=== PATIENT | male | born 1960 | race Caucasian/White ===

== ENCOUNTER 2016-09-28 22:35 | Emergency (ER) | payer SELFPAY ==
[~2016-09-28] VITALS: Ht 160 cm; Wt 82.2 kg
--- OUTSIDE RECORDS SUMMARY | 2016-09-28 22:38 | XMS REPORT | Continuity of Care Document ---
Author Author Darnell QUACH, Lior [facility] Address [address] [place] [address] Phone Care Team Providers Care Cnc Lathe Machine Operator Name Role Phone Brian Woodward PP Unavailable Payers Payer name Insurance type Covered constitution party ID Authorization(s) Unknown Problems Condition Effective Dates (start - stop) Clinical Status Diverticulitis of colon (without mention of hemorrhage) - Recurrent Back pain - *Chronic Glycosuria - *Chronic Hypertension, Benign - *Chronic Bronchitis, acute - *Acute Hypertension, benign - *Chronic Osteoarthritis of both hips - *Chronic Hypertension, Benign - *Chronic 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 Diverticulitis of colon (without mention of hemorrhage) - * Chronic Hypertension, Benign - Acute Exacerbation Other acute pain - *Acute Abdominal pain, acute, left lower quadrant - *Acute Diverticulitis - Acute Exacerbation Diverticulitis - Acute Exacerbation BENIGN HYPERTENSION - Family History Family Member Diagnosis Age At Onset Status Brother (Unknown) Diabetes Yes Brother (Unknown) CAD Yes Mother (Unknown) Alzheimer's Disease Yes Father (Unknown) CAD Yes Brother (Unknown) Hypertension Yes Social History Social History Element Description Quantity Unknown Allergies, Adverse Reactions, Alerts Substance Reaction Severity Status Unknown Medications Medication Instructions Dosage Effective Dates (start - stop) Status lisinopril 5 mg tablet Take 1 tablet by mouth every day. - Active albuterol sulfate HFA 90 mcg/actuation aerosol inhaler inhale 1-2 puff by inhalation route every 4 - 6 hours as needed - Active [place] 5 mg-325 mg tablet take 1 tablet by oral route every 6 hours PRN 0 - Active Immunizations Vaccine Date Status Comments Unknown Results Test Name Date and Time Measure Units Reference Range Abnormal Flag Comments Unknown Vital Signs Date / Time: Height Weight Pulse Rate Blood Pressure Temperature /15:33:00 63.00 in 198.00 lbs 140/72 mm[Hg] 97.9 F Procedures Procedure Date Unknown Encounters Encounter Location Date Patient Visit [facility] Surg Patient Visit [facility] Patient Visit [facility] [place] Patient Visit [facility] Patient Visit [facility] Patient Visit [facility] Patient Visit [facility] Patient Visit [facility] Advance Directives Directive Effective Date Unknown
--- OUTSIDE RECORDS SUMMARY | 2016-09-28 22:38 | XMS REPORT | Continuity of Care Document ---
Author Author Brian Woodward MD [facility] Address [address] [place] [address] [place] [address] Phone Care Team Providers Care Publications Editor Name Role Phone Brian Woodward PP Unavailable Payers Payer name Insurance type Covered constitution party ID Authorization(s) Unknown Problems Condition Effective Dates (start - stop) Clinical Status Diverticulitis - Acute Exacerbation Abdominal pain, acute, left lower quadrant - *Acute Other acute pain - *Acute Hypertension, Benign - Acute Exacerbation Hypertension, Benign - *Chronic Glycosuria - *Chronic Back pain - *Chronic Bronchitis, acute - *Acute Hypertension, benign - *Chronic Osteoarthritis of both hips - *Chronic Hypertension, Benign - *Chronic BENIGN HYPERTENSION - Diverticulitis - Acute Exacerbation Diverticulitis of colon (without mention of hemorrhage) - Recurrent Family History Family Member Diagnosis Age At Onset Status Brother (Unknown) Diabetes Yes Brother (Unknown) CAD Yes Mother (Unknown) Alzheimer's Disease Yes Father (Unknown) CAD Yes Brother (Unknown) Hypertension Yes Social History Social History Element Description Quantity Unknown Allergies, Adverse Reactions, Alerts Substance Reaction Severity Status Unknown Medications Medication Instructions Dosage Effective Dates (start - stop) Status Flagyl 500 mg tablet take 1 tablet (500MG) by oral route every 8 hours 500 MG - No Longer Active Cipro 500 mg tablet take 1 tablet (500MG) by oral route 2 times every day 500 MG - No Longer Active lisinopril 5 mg tablet Take 1 tablet by mouth every day. - Active albuterol sulfate HFA 90 mcg/actuation aerosol inhaler inhale 1-2 puff by inhalation route every 4 - 6 hours as needed - Active [place] 5 mg-325 mg tablet take 1 tablet by oral route every 6 hours PRN 0 - Active Immunizations Vaccine Date Status Comments Unknown Results Test Name Date and Time Measure Units Reference Range Abnormal Flag Comments Panel Description: CBC WBC 10:47:00 4.9 K/uL 4.8-10.8 RBC 10:47:00 5.30 M/uL 4.60-6.20 HGB 10:47:00 15.5 g/dl 14.0-18.0 HCT 10:47:00 46.2 % 42.0-52.0 MCV 10:47:00 87.2 fL 82.0-99.0 MCH 10:47:00 29.2 pg 27.0-32.0 MCHC 10:47:00 33.5 g/dL 32.0-36.0 RDW 10:47:00 14.0 % 11.5-14.5 MPV 10:47:00 11.7 fL 8.8-14.8 Platelet Count 10:47:00 199 K/uL 150-400 Immature Granulocytes 10:47:00 0.2 % 0.0-1.0 Absolute Neutrophils 10:47:00 2.77 THOUS 1.90-7.00 Absolute Lymphocytes 10:47:00 1.26 THOUS 0.80-3.30 Absolute Monocytes 10:47:00 0.64 THOUS 0.30-1.00 Absolute Eosinophils 10:47:00 0.13 THOUS 0.00-0.50 Absolute Basophils 10:47:00 0.06 THOUS 0.00-0.20 Neutrophils 10:47:00 57 % 51-75 Lymphocytes 10:47:00 26 % 20-46 Monocytes 10:47:00 13 % 4-11 H Eosinophils 10:47:00 3 % 0-4 Basophils 10:47:00 1 % 0-2 Testing performed at [facility] Reference Lab [address] [place], [place] [address] Software Developer Consultant Mario Valdez MD Panel Description: Metabolic Profile Glucose 10:47:00 100 mg/dL 70-99 H BUN 10:47:00 10 mg/dL 8-26 Creatinine 10:47:00 0.96 mg/dL 0.72-1.25 Calcium 10:47:00 9.5 mg/dL 8.9-10.5 Sodium 10:47:00 139 mEq/L 135-144 Potassium 10:47:00 4.1 mEq/L 3.5-5.2 Chloride 10:47:00 105 mEq/L 99-111 CO2 10:47:00 29 mEq/L 23-31 Anion Gap 10:47:00 5 3-20 Testing performed at [facility] Reference Lab [address] [place] [address] Software Developer Consultant Mario Valdez MD Panel Description: EGFR-[facility] eGFR 10:47:00 >60 mL/min >60 Multiply eGFR results by 1.21 for race.Testing performed at [facility] Reference Lab [address] [place], [place] [address] Software Developer Consultant Mario Valdez MD Vital Signs Date / Time: Height Weight Pulse Rate Blood Pressure Temperature /09:33:00 63.00 in 203.00 lbs 71 /min 150/100 mm[Hg] 97.7 F Procedures Procedure Date Unknown Encounters Encounter Location Date Patient Visit [facility] New Patient Visit [facility] New Patient Visit [facility] Care Patient Visit [facility] Patient Visit [facility] Patient [facility] Patient Visit [facility] New Surg Advance Directives Directive Effective Date Unknown
--- OUTSIDE RECORDS SUMMARY | 2016-09-28 22:38 | XMS REPORT | Continuity of Care Document ---
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 Diverticulitis of colon (without mention of hemorrhage) - * Chronic Hypertension, Benign - *Chronic Glycosuria - *Chronic Back pain - *Chronic Bronchitis, acute - *Acute Hypertension, benign - *Chronic Osteoarthritis of both hips - *Chronic Hypertension, Benign - *Chronic BENIGN HYPERTENSION - Diverticulitis - Acute Exacerbation Diverticulitis of colon (without mention of hemorrhage) - Recurrent Diverticulitis - Acute Exacerbation Abdominal pain, acute, left lower quadrant - *Acute Other acute pain - *Acute Hypertension, Benign - Acute Exacerbation Follow-up examination, following other surgery - *Acute Family History Family Member Diagnosis Age At [...] - 6 hours as needed - Active [place] 5 mg-325 mg tablet take 1 tablet by oral route every 6 hours PRN 0 - Active Immunizations Vaccine Date Status Comments Unknown Results Test Name Date and Time Measure Units Reference Range Abnormal Flag Comments Unknown Vital Signs Date / Time: Height Weight Pulse Rate Blood Pressure Temperature /13:05:00 63.00 in 200.00 lbs 98.5 F Procedures Procedure Date Unknown Encounters Encounter Location Date Patient Visit [facility] Surg Patient Visit [facility] Patient Visit [facility] Patient Visit [facility] Patient Visit [facility] Patient Visit [facility] Patient Visit [facility] Surg Patient Visit [facility] Patient Visit [facility] Advance Directives Directive Effective Date Unknown
--- OUTSIDE RECORDS SUMMARY | 2016-09-28 22:38 | XMS REPORT | Continuity of Care Document ---
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 Diverticulitis of colon (without mention of hemorrhage) - * Chronic Family History Family Member Diagnosis Age At [...] - 6 hours as needed - Active [place] 5 mg-325 mg tablet take 1 tablet by oral route every 6 hours PRN 0 - Active Immunizations Vaccine Date Status Comments Unknown Results Test Name Date and Time Measure Units Reference Range Abnormal Flag Comments Unknown Vital Signs Date / Time: Height Weight Pulse Rate Blood Pressure Temperature /14:05:00 63.00 in 198.00 lbs 98.8 F Procedures Procedure Date Unknown Encounters Encounter Location Date Patient Visit [facility] Surg Patient Visit [facility] Patient Visit [facility] Patient Visit [facility] Patient Visit [facility] Patient Visit [facility] Patient Visit [facility] Surg Patient Visit [facility] Patient Visit [facility] Advance Directives Directive Effective Date Unknown
--- OUTSIDE RECORDS SUMMARY | 2016-09-28 22:38 | XMS REPORT | Continuity of Care Document ---
Author Author [facility] Organization [facility] Address Unknown Phone Unavailable Allergies Medications Problems Procedures Results Encounters ACCT No. Visit Date/Time Discharge Status Pt. Type Provider Facility Loc./Unit Complaint [id number] 09/24/2013 14:04:00 09/24/2013 23 :59:59 CLS Outpatient [id number] 09/16/2013 13:04:00 09/16/2013 23 :59:59 CLS Outpatient [id number] 08/12/2013 15:32:00 08/12/2013 23 :59:59 CLS Outpatient [id number] 07/22/2013 09:32:00 07/22/2013 23 :59:59 CLS Outpatient
--- OUTSIDE RECORDS SUMMARY | 2016-09-28 22:39 | XMS REPORT | Continuity of Care Document ---
Author Author [facility] Organization [facility] Address Unknown Phone Unavailable Care Team Providers Care Shellfish Manager Name Role Phone ADI ADAMS MD Primary Care Physician [phone] Insurance Providers Payer Name Policy Number Subscriber Name Relationship [facility] [id number] López Dinh 16 Self Problems Medical Problems Problem Onset Date Status Diverticulitis Unknown Active ACUTE SIGMOID DIVERTICULITIS Unknown Active intractable abdominal pain Unknown Active Sprain, hand Unknown Active Sprain of hand or finger, right Unknown Active Medications Medication Dose Route Sig Days/Qty Instructions Order Date Discontinued Date Status [None] 09/23/14 Active Social History Social History Problem Response Recorded Date/Time Chewing Tobacco Status No 09/17/2013 9:46am Hx Substance Use No 09/23/2014 5:01pm Hx Alcohol Use No 09/23/2014 5:01pm Has the pt used tobacco in the last 12 months No 09/17/2013 9:46am Query Response Start Date Stop Date Smoking Status Never smoker Hospital Discharge Instructions No hospital discharge instructions. Plan of Care No plan of care. Functional Status Query Response Date Recorded Physical Hygiene Self September 23, 2014 5:01pm Disabilities None September 23, 2014 5:01pm Devices Used None September 23, 2014 5:01pm Dressing Self September 23, 2014 5:01pm Ambulation Self September 23, 2014 5:01pm Diet Self September 23, 2014 5:01pm Mental Status Alert Oriented September 23, 2014 6:29pm Disabilities None September 23, 2014 5:01pm Devices Used None September 23, 2014 5:01pm Physical Hygiene Self September 23, 2014 5:01pm Dressing Self September 23, 2014 5:01pm Ambulation Self September 23, 2014 5:01pm Diet Self September 23, 2014 5:01pm Allergies, Adverse Reactions, Alerts Allergen Type Severity Reaction Status Last Updated Ciprofloxacin Adverse Reaction Unknown N/V - GI UPSET Active 09/09/13 Metronidazole Adverse Reaction Unknown N/V - GI UPSET Active 09/09/13 Immunizations Name Given Type Hx Influenza Vaccination No Historical Hx Pneumococcal Vaccination No Historical Hx Tetanus, Diptheria, Pertussis Y 2011 Historical Hx Influenza Vaccination No Historical Hx Tetanus, Diptheria, Pertussis Y 2011 Historical Vital Signs Acute Vital Signs Vital Response Date/Time Temperature (Fahrenheit) 98.5 deg F (96.8 - 99.1) Temperature (Calculated Celsius) 36.07634 degrees C (36.0 - 37.3) Pulse Rate (adult) 83 bpm (60 - 100) Respiratory Rate 16 breaths/min (10 - 20) O2 Sat by Pulse Oximetry 96 % (90 - 100) Blood Pressure 142/101 mm Hg Height 5 ft 3 in Weight 198 lb Body Mass Index 35.0 kg/m^2 Results Test Source Date Result Interp. Ref. Range Comments Alanine Aminotransferase (ALT/SGPT) June 29, 2013 5:35am 26 U/L N 21 -72 Albumin June 29, 2013 5:35am 3.6 G/DL N 3.5-5.0 Albumin/Globulin Ratio June 29, 2013 5:35am 1.0 RATIO L 1.1-2.2 Alkaline Phosphatase June 29, 2013 5:35am 66 U/L N 38-126 Amylase Level June 24, 2013 8:15pm 86 U/L N 30-110 Anion Gap September 18, 2013 12:10pm 10 MEQ/L N 5-15 COMMENT SCU WILL CALL Aspartate Amino Transf (AST/SGOT) June 29, 2013 5:35am 25 U/L N 17- 59 BUN/Creatinine Ratio September 18, 2013 12:10pm 14 RATIO N 6-26 COMMENT SCU WILL CALL Basophils # (Auto) June 29, 2013 5:35am 0.0 T/MM3 N 0-0.2 Basophils (%) (Auto) June 29, 2013 5:35am 0.3 % N 0-2 Blood Urea Nitrogen September 18, 2013 12:10pm 11.0 MG/DL N 9-20 COMMENT SCU WILL CALL Calcium Level September 18, 2013 12:10pm 9.2 MG/DL N 8.4-10.2 COMMENT SCU WILL CALL Calculated Osmolality September 18, 2013 12:10pm 274 MOSM/KG N 261-280 COMMENT SCU WILL CALL Carbon Dioxide Level September 18, 2013 12:10pm 27 MEQ/L N 22-30 COMMENT SCU WILL CALL Chloride Level September 18, 2013 12:10pm 106 MEQ/L N 98-107 COMMENT SCU WILL CALL Creatinine September 18, 2013 12:10pm 0.8 MG/DL N 0.8-1.5 COMMENT SCU WILL CALL Eosinophils # (Auto) June 29, 2013 5:35am 0.2 T/MM3 N 0-0.5 Eosinophils (%) (Auto) June 29, 2013 5:35am 2.7 % N 0-4 Globulin June 29, 2013 5:35am 3.5 G/DL N 2.4-3.6 Glucose Level September 18, 2013 12:10pm 90 MG/DL N 75-110 COMMENT SCU WILL CALL Hematocrit June 29, 2013 5:35am 41.1 % N 41-53 Hemoglobin June 29, 2013 5:35am 13.9 GM/DL N 13.5-17.5 Lipase June 24, 2013 8:15pm 101 U/L N 23-300 Lymphocytes # (Auto) June 29, 2013 5:35am 1.1 T/MM3 N 1-4.8 Lymphocytes # (Manual) June 24, 2013 8:15pm 0.4 T/MM3 L 1-4.8 Lymphocytes % (Manual) June 24, 2013 8:15pm 3.0 % L 23-45 Lymphocytes (%) (Auto) June 29, 2013 5:35am 15.8 % L 23-45 Mean Corpuscular Hemoglobin June 29, 2013 5:35am 30.2 UUG N 26-34 Mean Corpuscular Hemoglobin Concent June 29, 2013 5:35am 33.8 GM/DL N 31-37 Mean Corpuscular Volume June 29, 2013 5:35am 89.3 UM3 N 80-100 Mean Platelet Volume June 29, 2013 5:35am 10.5 UM3 N 9.4-12.4 Monocytes # (Auto) June 29, 2013 5:35am 0.7 T/MM3 N 0-0.8 Monocytes # (Manual) June 24, 2013 8:15pm 0.4 T/MM3 N 0-0.8 Monocytes % (Manual) June 24, 2013 8:15pm 3.0 % N 0-9.0 Monocytes (%) (Auto) June 29, 2013 5:35am 10.5 % H 0-9.0 Neutrophils # (Auto) June 29, 2013 5:35am 4.9 T/MM3 N 1.8-7.7 Neutrophils # (Manual) June 24, 2013 8:15pm 12.6 T/MM3 H 1.8-7.7 Neutrophils % (Manual) June 24, 2013 8:15pm 93.0 % H 33-66 Neutrophils (%) (Auto) June 29, 2013 5:35am 70.4 % H 33-66 Platelet Count June 29, 2013 5:35am 226 T/MM3 N 130-400 Potassium Level September 18, 2013 12:10pm 4.2 MEQ/L N 3.6-5 COMMENT SCU WILL CALL Prealbumin June 25, 2013 5:25am 21.3 MG/DL N 17.6-36.0 RDW Standard Deviation June 29, 2013 5:35am 43.0 FL N 36.9-50.2 Red Blood Count June 29, 2013 5:35am 4.60 M/MM3 N 4.50-5.90 Sodium Level September 18, 2013 12:10pm 143 MEQ/L N 134-144 COMMENT SCU WILL CALL Thyroid Stimulating Hormone (TSH) June 25, 2013 5:25am 0.84 MIU/L N 0.47-4.68 COMMENT blood in lab Total Bilirubin June 29, 2013 5:35am 0.70 MG/DL N 0.20-1.30 Total Protein June 29, 2013 5:35am 7.1 G/DL N 6.3-8.2 Urine Bilirubin June 24, 2013 9:30pm Negative - Has specimen been collected/obtained? Y Urine Blood June 24, 2013 9:30pm Negative - Has specimen been collected/obtained? Y Urine Collection Type June 24, 2013 9:30pm Cleancatch-midstream - Has specimen been collected/obtained? Y Urine Color June 24, 2013 9:30pm Yellow - Has specimen been collected/obtained? Y Urine Glucose (UA) June 24, 2013 9:30pm Negative - Has specimen been collected/obtained? Y Urine Ketones June 24, 2013 9:30pm Negative - Has specimen been collected/obtained? Y Urine Leukocyte Esterase June 24, 2013 9:30pm Negative - Has specimen been collected/obtained? Y Urine Nitrite June 24, 2013 9:30pm Negative - Has specimen been collected/obtained? Y Urine Protein June 24, 2013 9:30pm Negative - Has specimen been collected/obtained? Y Urine Specific [place] June 24, 2013 9:30pm 1.010 L - Has specimen been collected/obtained? Y Urine Turbidity June 24, 2013 9:30pm Clear - Has specimen been collected/obtained? Y Urine Urobilinogen June 24, 2013 9:30pm Normal EU/DL - Has specimen been collected/obtained? Y Urine pH June 24, 2013 9:30pm 8.0 - Has specimen been collected/ obtained? Y Vitamin B12 Level June 25, 2013 5:25am 488 PG/ML N 239-931 White Blood Count June 29, 2013 5:35am 7.0 T/MM3 N 4.5-11.0 Chemistry Specimen Hemolysis September 18, 2013 12:10pm < 15 0-25 0-25: No Hemolysis.26-70: Slight Hemolysis - can falsely elevate K and Urine Protein. 71-285: Moderate Hemolysis - can falsely elevate K, Troponin I, CA 19-9, PTH, CSF GLucose, and Urine Protein, and can falsely decrease Phenytoin. 286-999: Gross Hemolysis - can falsely elevate K, Troponin I, CA 19-9, PTH, CSF Glucose, and Urine Protine, and can falsely decrease Phenytoin. Recommend specimen recollection. Urinalysis Comment June 24, 2013 9:30pm Microscopic not ind. - Has specimen been collected/obtained? Y Glucometer September 18, 2013 8:16am 91 mg/dL N 75-110 Turbidity September 18, 2013 12:10pm < 20 0-20 COMMENT SCU WILL CALL Reactive Lymphocytes % June 24, 2013 8:15pm 1.0 % H 0-0 Glomerular Filtration Rate Calc September 18, 2013 12:10pm 101 - COMMENT SCU WILL CALL Reactive Lymphocytes # June 24, 2013 8:15pm 0.1 T/MM3 H 0-0 Immature Granulocyte # (Auto) June 29, 2013 5:35am 0.02 T/MM3 N 0.00 -0.03 Immature Granulocyte % (Auto) June 29, 2013 5:35am 0.3 % N 0.0-0.5 Icterus Index September 18, 2013 12:10pm < 2 0-7 COMMENT SCU WILL CALL Procedures No known history of procedures. Encounters Encounter Location Date/Time Departed Emergency Room [facility] 09/23/14 4:38pm Recent Diagnosis
[2016-09-28 23:15] VITALS: Ht 160 cm; Wt 82.2 kg
--- NOTE | 2016-09-28 23:25 | NUR ---
ROOM PT AMBULATORY TO ROOM 5 FROM TRIAGE PT RESTLESS AND PACING IN ROOM AT TIMES HE LAYS ACROSS THE CART WHICH HE SAYS IS THE MOST COMFORTABLE
[2016-09-28] MEDS ORDERED: LISI-625 PO (23:26)
--- NOTE | 2016-09-28 23:49 | NUR ---
IVL IVL STARTED IN THE RIGHT HAND WITH #20GA, FIRST ATTEMPT BLOOD OBTAINED FOR LAB PT KESHA WELL
[2016-09-28] MEDS ORDERED: NORMAL SALINE 1,000 ML IV ONE (23:57)
[2016-09-29] MEDS ORDERED: TAMSULOSIN 0.4 MG CAPSULE PO ONE
[2016-09-29] MEDS ORDERED: KETOROLAC 30mg/ml INJECTION IV ONE
[2016-09-29] MEDS ORDERED: ONDANSETRON 4mg/2ml INJECTION IV ONE
--- OUTSIDE RECORDS SUMMARY | 2016-09-29 00:05 | XMS REPORT | Continuity of Care Document ---
Author Author [facility] Organization [facility] Address Unknown Phone Unavailable Allergies Medications Problems Procedures Results Encounters ACCT No. Visit Date/Time Discharge Status Pt. Type Provider Facility Loc./Unit Complaint [id number] 09/24/2013 14:04:00 09/24/2013 23 :59:59 CLS Outpatient [id number] 09/16/2013 13:04:00 09/16/2013 23 :59:59 CLS Outpatient [id number] 08/12/2013 15:32:00 08/12/2013 23 :59:59 CLS Outpatient [id number] 07/22/2013 09:32:00 07/22/2013 23 :59:59 CLS Outpatient
--- OUTSIDE RECORDS SUMMARY | 2016-09-29 00:05 | XMS REPORT | Continuity of Care Document ---
Author Author [facility] Organization [facility] Address Unknown Phone Unavailable Care Team Providers Care Rejector Name Role Phone ADI ADAMS MD Primary Care Physician [phone] Insurance Providers Payer Name Policy Number Subscriber Name Relationship [facility] [id number] López Dinh 16 Self Problems Medical Problems [...] F (96.8 - 99.1) Temperature (Calculated Celsius) 36.20358 degrees C (36.0 - 37.3) Pulse Rate [...] Has specimen been collected/obtained? Y Urine Specific [place] June 24, 2013 9:30pm 1.010 L - [...] Encounters Encounter Location Date/Time Departed Emergency Room [facility] 09/23/14 4:38pm Recent Diagnosis
--- NOTE | 2016-09-29 00:18 | NUR ---
IV FLUID #1 IV 1000CC NS STARTED AT 999CC/HR IV SITE WITHOUT REDNESS OR SWELLING
--- NOTE | 2016-09-29 00:19 | NUR ---
ZOFRAN IV ZOFRAN GIVEN FOR NAUSEA
--- NOTE | 2016-09-29 00:22 | ERPDOC ---
Departure Disposition Decision Date: Sep 29, 2016 Disposition Decision Time: 00:20 Disposition: 01 DISCHARGED HOME, SELF-CARE Impression Impression Impression: Primary Impression: Constipation Constipation type: other constipation type Qualified Codes: K59.09 - Other constipation Severity: Severe Condition: Improved Seen By: Physician only Referrals: YOUR PHYSICIAN 3 Days Patient Instructions: Constipation (ED) Problems/Meds/Labs Reviewed?: Yes Medications reviewed and manag: Yes Additional Instructions: Discharge instructions given on printed form during system downtime. Follow up care ordered?: Yes Mental Status: Alert, Oriented HPI - Abdominal Pain General Chief Complaint: Flank Pain Stated Complaint: RIGHT SIDED PAIN Time Seen by Provider: 23:57 Source: patient History/Exam Limitations: no limitations HPI - Abdominal Pain Initial Comments 55yo man presents to the ER tonight for RUQ pain. Pain has been present since around 1600 today, shortly after he ate a [employer] day meal (corned beef, cabbage, and potatoes). Pt went for a bike ride following, but sx were worse. Pain has been sharp and achy, steady, and progressive since starting. Pt has never had sx like this before. Has not gotten any relief. Occurred At: home Onset: Gradual, Getting worse Duration: 6-12 hrs Pain Scale: Now & Worst: 6/10 Quality: aching, stabbing Location: RUQ Radiation: no radiation 1 - Pain Activities at Onset: during/after eating Modifying Factors: WORSE WITH: movement, palpation, walking Associated Symptoms: fever/chills, nausea/vomiting Hx of Similar Symptoms: No Allergies: Coded Allergies: ciprofloxacin (Verified Adverse Reaction, Unknown, N/V - GI UPSET, 09/28/16 ) pt states, "It was awful to take.", unknown if actually an allergy metronidazole (Verified Adverse Reaction, Unknown, N/V - GI UPSET, ) states, "It's awful." unsure if actually an allergy Past History Past Medical History Metabolic: hypertension GI: GERD Psychological: alcohol abuse Surgical History General: colonoscopy Family History Family PMH: FOUND: CAD, diabetes, other Vaccines Hx Influenza Vaccination: No Hx Pneumococcal Vaccination: No Hx Tetanus, Diptheria, Pertuss: Yes (2011) Review of Systems GI Upper Abdomen: nausea, pain Comments Bloating All other Systems All Other Systems: Reviewed and Negative Physical Exam General General Nourishment: well nourished, well developed, appears stated age, adult , obese, acute distress General Body Habitus: well groomed Vitals and Pain First Documented Vital Signs Date Time Temp Pulse Resp B/P Pulse Ox O2 Delivery O2 Flow Rate FiO2 09/28/16 23:15 98.5 74 18 126/88 96 Room Air Weight: Kilograms: 82.200 Height (feet): 5 Height (inches): 3.00 Triage Pain Scale: RN VS reviewed by Provider: Yes Normal Exams: Head: Normocephalic w/o trauma Eyes: Pupils are PERRLA w/ EOMI, No scleral icterus, irritation ENMT: No facial trauma, nasal exudates, pharyngeal erythema Neck: Full range of motion, without adenopathy, JVD Lymphatic: No lymphadenopathy Musculoskeletal: No tenderness, or deformity noted, good range of motion Integumentary: No rashes, hives, or bruising noted Neurologic: Patient is alert, and oriented Psychiatric: Patient exhibits, appropriate attention Respiratory (brief) Respiratory: FOUND: clear all sinha, equal bilaterally, symmetrical, NOT FOUND : rales, wheezes Cardiovascular (brief) Cardiac: FOUND: regular rate, regular rhythm, NOT FOUND: click, gallop, murmur , pedal edema, peripheral edema, rub Capillary Refill: <2 sec Pulses: all distal extremities, equal, strong Abdomen (brief) Abdominal Brief: FOUND: bowel normo active x4, distended, soft, tender (Point tenderness over RUQ. Positive Jara's sign.), NOT FOUND: hepatosplenomegaly, pulsatile mass Differential Diagnoses Considering: Appendicitis, Biliary Colic, Bowel Obstruction, Cholecystitis, Gastroenteritis, GERD, Hernia, IBS, Pancreatitis, Pneumonia, Pyelonephritis, Renal Colic, UTI, Volvulus Progress Results/Orders Orders Procedure Category Date Status Time Cbc W/Auto LAB 09/28/16 Complete Diff-Reflex Manual 23:57 Bmp - Basic Metabolic LAB 09/28/16 Complete Panel 23:57 Ua, Dip Wreflex LAB 09/28/16 Logged [employer]ator 23:57 Iv Lock (Ed Only) EDM 09/28/16 Transmitted 23:57 Normal Saline (Normal PHA 09/28/16 Complete Saline Iv) 23:57 Ondansetron Inj PHA 09/29/16 Complete (Zofran) 00:00 Ketorolac (Toradol) PHA 09/29/16 Complete 00:00 Ct Abd/Pelvis CT 09/29/16 Taken W/Contrast Only Lipase LAB 09/29/16 Complete Cmp - Comprehensive LAB 09/29/16 Complete Metabolic Piperacillin/Tazobactam PHA 09/29/16 Complete (Zosyn) 03:00 Morphine Sulfate PHA 09/29/16 Complete (Morphine) 01:00 Iohexol (Omnipaque) PHA 09/29/16 Complete 00:49 Normal Saline (Ns) PHA 09/29/16 Complete 00:50 Saline Flush (Iv PHA 09/29/16 Complete Flush) 00:50 Morphine Sulfate PHA 09/29/16 Complete (Morphine) 01:19 Lab Results Laboratory Tests Test 09/29/16 00:19 White Blood Count 7.9T/MM3 Red Blood Count 5.23M/MM3 Hemoglobin 15.9GM/DL Hematocrit 47.6% Mean Corpuscular Volume 91.0UM3 Mean Corpuscular Hemoglobin 30.4UUG Mean Corpuscular Hemoglobin Concent 33.4GM/DL RDW Standard Deviation 45.1FL Platelet Count 202T/MM3 Mean Platelet Volume 11.0UM3 Immature Granulocyte % (Auto) 0.1% Neutrophils (%) (Auto) 76.1% Lymphocytes (%) (Auto) 14.5% Monocytes (%) (Auto) 7.6% Eosinophils (%) (Auto) 1.3% Basophils (%) (Auto) 0.4% Absolute Immature Granulocyte (auto 0.01T/MM3 Absolute Neutrophils (auto) 6.0T/MM3 Absolute Lymphocytes (auto) 1.1T/MM3 Absolute Monocytes (auto) 0.6T/MM3 Absolute Eosinophils (auto) 0.1T/MM3 Absolute Basophils (auto) 0.0T/MM3 Turbidity < 20 Sodium Level 143MEQ/L Potassium Level 4.2MEQ/L Chloride Level 106MEQ/L Carbon Dioxide Level 24MEQ/L Anion Gap 13MEQ/L Blood Urea Nitrogen 11.0MG/DL Creatinine 0.9MG/DL Glomerular Filtration Rate Calc 87 BUN/Creatinine Ratio 12RATIO Glucose Level 104MG/DL Calculated Osmolality 274MOSM/KG Calcium Level 9.1MG/DL Total Bilirubin 1.10MG/DL Icterus Index < 2 Aspartate Amino Transf (AST/SGOT) 31U/L Alanine Aminotransferase (ALT/SGPT) 38U/L Alkaline Phosphatase 80U/L Total Protein 7.5G/DL Albumin 4.3G/DL Globulin 3.2G/DL Albumin/Globulin Ratio 1.3RATIO Lipase 149U/L Chemistry Specimen Hemolysis < 15 Medications Current ED Medications Sodium Chloride (Normal Saline IV) 1,000 ml @ 0 mls/hr Q0M ONCE IV Last administered on 09/29/16 00:18; Start 09/28/16 at 23:57; Stop 09/28/16 at 23:59 ; Status DC Ondansetron HCl (Zofran) 4 mg O ONCE IV Last administered on 09/29/16 00:19; Start 09/29/16 at 00:00; Stop 09/29/16 at 00:01; Status DC Tamsulosin HCl (FLOMAX 0.4 mg) 0.4 mg O ONCE PO ; Start 09/29/16 at 00:00; Stop 09/29/16 at 00:01; Status Cancel Ketorolac Tromethamine 30 mg 30 mg O ONCE IV Last administered on 09/29/16 00 :22; Start 09/29/16 at 00:00; Stop 09/29/16 at 00:01; Status DC Piperacillin Sod/ Tazobactam Sod/ Sodium Chloride (Zosyn/NS) 100 ml @ 200 mls/ hr Q6HR IV Last administered on 09/29/16 01:36; Start 09/29/16 at 03:00; Stop 09/29/16 at 03:10; Status DC Morphine Sulfate (Morphine) 4 mg O ONCE IV Last administered on 09/29/16 00: 48; Start 09/29/16 at 01:00; Stop 09/29/16 at 01:01; Status DC Iohexol 1 bottle 1 bottle STK-MED ONCE .ROUTE ; Start 09/29/16 at 00:49; Stop at 00:50; Status DC Sodium Chloride (NS) 100 ml @ As Directed STK-MED ONCE .ROUTE ; Start 09/29/16 at 00:50; Stop 09/29/16 at 00:51; Status DC Sodium Chloride (Iv Flush) 10 ml STK-MED ONCE .ROUTE ; Start 09/29/16 at 00:50; Stop 09/29/16 at 00:51; Status DC Morphine Sulfate (Morphine) 4 mg O ONCE IV Last administered on 09/29/16t 01: 21; Start 09/29/16 at 01:19; Stop 09/29/16 at 02:46; Status DC Progress Progress Pt with Hx and PE classic for cholecystitis, but without any findings on CT abd/ pelv. After reviewing the films locally, there is strong concern for constipation/impaction as the cause of pts sx. Discussed the lab/rad findings with the pt, as well as the likely dx. Pt voiced understanding and asked lots of questions regarding prognosis and treatment. Answered all of pts questions, and recommended that he f/u with his PCM for further eval/treatment as needed. Pt voiced understanding. CT CT : CT: Abd/Pelvis IV contrast Interpretation: Normal, Reviewed Written Report JOVANY SULLIVAN DO Sep 29, 2016 00:22
--- NOTE | 2016-09-29 00:22 | NUR ---
TORADOL IV TORADOL GIVEN FOR RUQ AND LATERAL RIGHT SIDE PAIN PT RATES PAIN 10/10
[2016-09-29 00:28] LABS: BASOPHILS % (AUTO) 0.4 % (0-2); EOSINOPHILS # (AUTO) 0.1 T/MM3 (0-0.5); EOSINOPHILS % (AUTO) 1.3 % (0-4); HCT - HEMATOCRIT 47.6 % (41-53); HGB - HEMOGLOBIN 15.9 GM/DL (13.5-17.5); IMMATURE GRANULOCYTE # (AUTO) 0.01 T/MM3 (0.00-0.03); IMMATURE GRANULOCYTE % (AUTO) 0.1 % (0.0-0.5); LYMPHOCYTES # (AUTO) 1.1 T/MM3 (1-4.8); LYMPHOCYTES % (AUTO) 14.5 % (23-45); MEAN CORPUSCULAR HGB 30.4 UUG (26-34); MEAN CORPUSCULAR HGB CONC(MCHC 33.4 GM/DL (31-37); MONOCYTES # (AUTO) 0.6 T/MM3 (0-0.8); MONOCYTES % (AUTO) 7.6 % (0-9.0); NEUTROPHILS % (AUTO) 76.1 % (33-66); RED BLOOD COUNT 5.23 M/MM3 (4.50-5.90); WBC - WHITE BLOOD COUNT 7.9 T/MM3 (4.5-11.0)
[2016-09-29 00:39] LABS: ANION GAP 13 MEQ/L (5-15); BUN/CREATININE RATIO 12 RATIO (6-26); CALCIUM 9.1 MG/DL (8.4-10.2); CHLORIDE 105 MEQ/L (98-107); CO2 - CARBON DIOXIDE 24 MEQ/L (22-30); CREATININE 0.9 MG/DL (0.8-1.5); GLOMERULAR FILTRATION RATE 87; GLUCOSE 103 MG/DL (75-110); LIPASE 149 U/L (23-300); POTASSIUM 4.2 MEQ/L (3.6-5); SODIUM 142 MEQ/L (134-144)
--- NOTE | 2016-09-29 00:48 | NUR ---
MORPHINE IV MORPHINE GIVEN FOR PAIN PT RATES PAIN 0/10
[2016-09-29] MEDS ORDERED: IOHEXOL 300 MG/ML 100ml INJECTION ONE (00:49)
[2016-09-29] MEDS ORDERED: SALINE FLUSH 10ml SYRINGE ONE (00:50)
[2016-09-29] MEDS ORDERED: NORMAL SALINE 100 ML ONE (00:50)
[2016-09-29 00:54] LABS: ALBUMIN 4.3 G/DL (3.5-5.0); ALBUMIN/GLOBULIN RATIO 1.3 RATIO (1.1-2.2); ALKALINE PHOSPHATASE 80 U/L (38-126); ALT (SGPT) 38 U/L (21-72); ANION GAP 13 MEQ/L (5-15); AST (SGOT) 31 U/L (17-59); BUN/CREATININE RATIO 12 RATIO (6-26); CALCIUM 9.1 MG/DL (8.4-10.2); CHLORIDE 106 MEQ/L (98-107); CO2 - CARBON DIOXIDE 24 MEQ/L (22-30); CREATININE 0.9 MG/DL (0.8-1.5); GLOMERULAR FILTRATION RATE 87; GLUCOSE 104 MG/DL (75-110); POTASSIUM 4.2 MEQ/L (3.6-5); SODIUM 143 MEQ/L (134-144); TOTAL PROTEIN 7.5 G/DL (6.3-8.2)
--- NOTE | 2016-09-29 00:58 | NUR ---
CT PT TAKEN TO CT PER W/C
[2016-09-29] MEDS ORDERED: MORPHINE SULFATE 4 MG SYRINGE IV ONE ×2 (01:00→01:19)
--- NOTE | 2016-09-29 01:11 | NUR ---
ROOM PT RETURNED TO ROOM 5 PER W/C FROM CT
--- NOTE | 2016-09-29 01:15 | NUR ---
STATUS PT REPORTS HIS PAIN IS 8/10 DENIES NAUSEA
--- NOTE | 2016-09-29 01:17 | NUR ---
FAMILY PT AND DAUGHTER AT BEDSIDE
--- NOTE | 2016-09-29 01:21 | NUR ---
MORPHINE IV MORPHINE GIVEN FOR PAIN
--- NOTE | 2016-09-29 01:36 | NUR ---
ZOSYN IV ZOSYN STARTED IVPB TO MAINLINE IV SITE WITHOUT REDNESS OR SWELLING
--- NOTE | 2016-09-29 01:37 | NUR ---
PAIN PT RATES HIS PAIN 7-8/10
--- NOTE | 2016-09-29 01:49 | NUR ---
DR CELIS AT BEDSIDE TALKING TO PT AND FAMILY
--- NOTE | 2016-09-29 02:36 | NUR ---
ZOSYN IV ZOSYN INFUSED
--- NOTE | 2016-09-29 02:42 | NUR ---
IV FLUID IV NS INFUSED IV SITE WITHOUT REDNESS OR SWELLING
--- NOTE | 2016-09-29 02:59 | NUR ---
IVL IVL DC'D WITH CATH INTACT DRSG APPLIED TO IV SITE PT KESHA WELL
[2016-09-29] MEDS ORDERED: PIPERACILLIN/TAZOBACTAM 3.375 G in NORMAL SALINE 100 ML IV SCH (03:00)
--- NOTE | 2016-09-29 03:02 | NUR ---
INSTRUCTIONS DISMISSAL INSTRUCTIONS GIVEN TO PT AND BOTH VERBALIZED UNDERSTANDING OF ALL
[2016-09-29 03:04] VITALS: BP 133/85; PULSE 87; RESP 16; TEMP 98.5; O2SAT 96
--- NOTE | 2016-09-29 03:04 | NUR ---
DISMISS PT DISMISSED AMBULATORY WITH
--- NOTE | 2016-09-29 15:36 | DI ---
Indication: ITS.REASON: RUQ pain; pos Jara's PROCEDURE: CT ABD/PELVIS W/CONTRAST ONLY: Encounter: Initial Comparison: June 24, 2013 Technique: Axial CT images were performed through the abdomen and pelvis after the administration of intravenous contrast. Coronal and sagittal two-dimensional reformats. Automated Exposure Control and Iterative Reconstruction dose reducing techniques were utilized. Contrast: Omnipaque 300 100 mL Findings: Mild atelectasis in the lung bases. The liver is unremarkable. The gallbladder appears normal. Spleen, pancreas and adrenal glands are within normal limits. The kidneys are normal. No abdominal or pelvic adenopathy. Bladder is within normal limits. Prostate and rectum are unremarkable. No free fluid. Minimal sigmoid diverticulosis without acute diverticulitis. The appendix is normal. Bone windows show no acute findings. Impression: No acute disease process seen. There is a preliminary report by [facility]. .
== END 2016-09-29 03:04 | disposition home or self-care (01) ==
LOC: ED 22:35
DX: K59.09 Other constipation (principal)
CPT/HCPCS: 80048; 80053; 83690; 85025